=== PATIENT | female | born 1955 | race Caucasian/White ===

== ENCOUNTER → 2018-07-24 | Day surgery (SDC) | payer BC ==
[~2018-07-24] MED LIST: HYDROmorphone 2 MG/ML VIAL IV PRN; IV RINGERS,LACTATED 1000ML 1,000 ML IV SCH; LEVO88TA4 PO; LIDOCAINE 1% PF 2 ML VIAL. ID PRN; MORPHINE SULFATE 2 MG/ML VIAL. IV PRN; ONDANSETRON PF 4 MG/2 ML VIAL. IV PRN; PROCHLORPERAZINE 10 MG/2 ML VIAL. IV PRN; PROPOFOL 40 ML IV ONE; SIMV20TA3 PO; VARE1TAB21 PO; fentaNYL PF VIAL 100 MCG/2 ML VIAL IV PRN
[2018-07-24 08:00] VITALS: BP 163/67
--- NOTE | 2018-07-24 09:18 | CONS ---
DATE OF CONSULTATION: 07/24/2018 REASON FOR CONSULTATION: Colorectal screening. HISTORY OF PRESENT ILLNESS: A 63-year-old female with a past medical history significant for hyperlipidemia, hypothyroidism as well as tonsillectomy, tubal ligation, breast surgery is seen for a screening colon exam. Last one was 10 years ago, which was unrevealing. Bowel habits are regular without diarrhea or constipation. There has been no melena and/or hematochezia. Family history is unrevealing for colon polyps or colon cancer. She is otherwise without additional complaints. PAST MEDICAL HISTORY: Hyperlipidemia and hypothyroidism. ALLERGIES: None. MEDICATIONS: Include levothyroxine, simvastatin and Chantix. FAMILY AND SOCIAL HISTORY: She is a nonsmoker and social drinker. REVIEW OF SYSTEMS: Per records. PHYSICAL EXAMINATION: GENERAL: Reveals a well-nourished, well-developed female who is alert, cooperative, in no acute distress. VITAL SIGNS: Temperature 97.5, pulse 83 and respiratory rate 18. HEENT: Reveals normocephalic and atraumatic head. Pupils and extraocular movements are not tested. Sclerae anicteric. NECK: Supple. LUNGS: Clear. CARDIOVASCULAR: Reveals an S1, S2 without S3, S4 or appreciable murmur. ABDOMEN: Reveals a soft abdomen, normal bowel sounds, without appreciable hepatosplenomegaly. EXTREMITIES: Reveals no cyanosis, clubbing or edema. IMPRESSION: Colorectal screening is warranted at this time. Risks and benefits of the procedure including risk of hemorrhage and perforation have been discussed. The patient is willing to proceed. I thank you Karen Pereyra for allowing us to consult and participate in the patient's care. BEBE GARCÍA MD DR: DIONICIO/nasrin JOB#: [id number] / [id number] KAREN Hinton
--- NOTE | 2018-07-27 18:07 | PATHOLOGY ---
[facility] Accession Number: [id number] . 01 Material submitted: . RECTAL POLYP . 01 Clinical history: . Screening . 02 Diagnosis: Colorectal biopsies, rectal polyp: - Hyperplastic polyp. . ([facility]; 07/27/18) M/07/27/2018 . 02 Comment: There are no adenomatous changes or evidence of malignancy. . ([facility]:mm; 07/27/18) . 02 Electronically signed: . Gustavo Cueva MD, Pathologist NPI- [id number] . 01 Gross description: . Received in formalin labeled "Phillip, Kadie, rectal polyp," are 2 segments of rogers soft tissue measuring 0.5 x 0.3 x 0.2 cm in aggregate dimensions and ranging from 0.2 to 0.3 cm in maximum dimension. The specimen is submitted entirely in cassette A1. ([facility]; 07/24/2018) TOB/TOB . 02 Pathologist provided ICD-10: K62.1 . 02 CPT . 448682 Specimen Comment: A courtesy copy of this report has been sent to Specimen Comment: [phone]. Specimen Comment: Report sent to DR MCCRAY Specimen Comment: A duplicate report has been generated due to demographic updates. Performed at: 01 [facility] [address], [place], [place] [id number] MD Osbaldo Johnson MD Phone: [phone] Performed at: 02 [facility] [address] [place], [place] [id number] MD Gustavo Cueva MD Phone: [phone]
== END | disposition home or self-care (01) ==
LOC: ENDOS 05:55
PROVIDERS: ATTEND Internal Medicine Gastroenterology
DX: Z12.11 Encounter for screening for malignant neoplasm of colon (principal); K62.1 Rectal polyp; K57.30 Diverticulosis of large intestine without perforation or abscess without bleeding; K64.0 First degree hemorrhoids; E78.5 Hyperlipidemia, unspecified; E03.9 Hypothyroidism, unspecified; Z98.890 Other specified postprocedural states; Z98.51 Tubal ligation status; Z79.899 Other long term (current) drug therapy; Z72.89 Other problems related to lifestyle
CPT/HCPCS: 45380; 88305; J2704